=== PATIENT | female | born 1990 | race Caucasian/White ===

== ENCOUNTER → 2017-04-26 | Outpatient (CLI) | payer OTHER ==
[~2017-04-26] MED LIST: FLEXERIL10 MG PO; MOTRIN800 MG PO; ZITHROMAX Z PA250 MG PO
== END | disposition home or self-care (01) ==
LOC: RAD 16:48
DX: M54.5 Low back pain (principal); M54.32 Sciatica, left side

== ENCOUNTER → 2020-04-09 | Outpatient (CLI) | payer OTHER ==
[~2020-04-09] MED LIST changes: +Motrin,Rufen800 MG PO; +NORTREL 1-35 21 EACH PO
== END | disposition home or self-care (01) ==
LOC: LAB 14:04 → COVID19 14:04
PROVIDERS: ATTEND Obstetrics & Gynecology
DX: Z01.818 Encounter for other preprocedural examination (principal); Z11.52 Encounter for screening for COVID-19

== ENCOUNTER → 2020-04-13 | Day surgery (SDC) | payer OTHER ==
[2020-04-09 14:26] VITALS: BP 127/73
[~2020-04-13] VITALS: Ht 162.5 cm; Wt 63.5 kg
[2020-04-13 07:00] VITALS: BP 125/63
[2020-04-13 07:55] VITALS: BP 113/70
[2020-04-13 08:10] VITALS: BP 112/71
[2020-04-13 08:25] VITALS: BP 122/76
== END ==
LOC: SDC 04-09 14:00
PROVIDERS: ATTEND Obstetrics & Gynecology
DX: R87.613 High grade squamous intraepithelial lesion on cytologic smear of cervix (HGSIL) (principal); B97.7 Papillomavirus as the cause of diseases classified elsewhere